=== PATIENT | female | born 1985 | race Caucasian/White ===

== ENCOUNTER → 2023-02-06 10:28 | Outpatient (BNVA) | payer OTHER, SELFPAY | PROVIDERS: Family Provider Family Medicine; Visit Provider Emergency Medicine | DX: S92.355A Nondisplaced fracture of fifth metatarsal bone, left foot, initial encounter for closed fracture (principal); X58.XXXA Exposure to other specified factors, initial encounter | CPT/HCPCS: 73630 ==

== ENCOUNTER 2023-03-14 16:53 | Outpatient (CLI) | payer OTHER, SELFPAY ==
--- NOTE | 2023-03-14 17:09 | XRR_ITS ---
PROCEDURE INFORMATION: Exam: XR Left Foot Exam date and time: 03/14/2023 5:32 PM Age: 37 years old Clinical indication: Injury or trauma; Other: Rolled foot; Sprain or strain; Left; Injury date: 5 weeks ago; Additional info: F/u on fracture TECHNIQUE: Imaging protocol: Radiologic exam of the left foot. Views: 1 or 2 views. COMPARISON: CR XR foot LT min 3V* [id number] 02/06/2023 10:38 AM FINDINGS: Bones/joints: Nondisplaced 5th metatarsal base fracture redemonstrated. No bone callus seen. Normal joint spaces. Unremarkable bone mineralization. No arthritis. Soft tissues: Normal. XR/XR foot LT 2V [id number] IMPRESSION: No significant healing of the nondisplaced 5th metatarsal fracture identified.
== END 2023-03-14 16:54 | disposition home or self-care (01) ==
PROVIDERS: PCP Family Medicine; Visit Provider Family Medicine
DX: S92.355A Nondisplaced fracture of fifth metatarsal bone, left foot, initial encounter for closed fracture (principal); X50.1XXA Overexertion from prolonged static or awkward postures, initial encounter
CPT/HCPCS: 73620